=== PATIENT | female | born 1950 | race African-American/Black ===

== ENCOUNTER 2017-01-04 07:17 | Emergency (ER) | payer OTHER ==
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
[2017-01-04 08:24] VITALS: BP 140/82
== END 2017-01-04 08:25 | disposition home or self-care (01) ==
LOC: EDBD → ED 07:17 → SUPCPDRO 07:17 → ED 08:25
DX: R07.9 Chest pain, unspecified (principal); R10.9 Unspecified abdominal pain; V43.52XA Car driver injured in collision with other type car in traffic accident, initial encounter